=== PATIENT | male | born 1985 | race Caucasian/White ===

== ENCOUNTER 2019-06-06 11:55 | Emergency (ER) | payer BC ==
[~2019-06-06] VITALS: Ht 188 cm; Wt 149.7 kg
[2019-06-06] MEDS ORDERED: HTN MED (12:08)
[2019-06-06] MEDS ORDERED: ALLOPURINOL 10100 M3 PO (12:08)
[2019-06-06] MEDS ORDERED: ULORIC40 MG PO (12:09)
[2019-06-06] MEDS ORDERED: FLEXERIL PO (12:33)
[2019-06-06] MEDS ORDERED: NORCO 5-325 TA1 EAC1 PO (12:33)
[2019-06-06 12:56] VITALS: BP 120/87
== END 2019-06-06 12:57 | disposition home or self-care (01) ==
LOC: M.ERS 11:55
DX: S46.001A Unspecified injury of muscle(s) and tendon(s) of the rotator cuff of right shoulder, initial encounter (principal); M06.9 Rheumatoid arthritis, unspecified; M10.9 Gout, unspecified; F17.210 Nicotine dependence, cigarettes, uncomplicated; X58.XXXA Exposure to other specified factors, initial encounter; Y93.89 Activity, other specified; Y92.89 Other specified places as the place of occurrence of the external cause; Y99.8 Other external cause status